=== PATIENT | female | born 1985 | race Caucasian/White ===

== ENCOUNTER 2018-05-24 15:14 | Emergency (ER) | payer OTHER ==
[~2018-05-24] VITALS: Ht 165.1 cm; Wt 99.8 kg
== END 2018-05-24 19:16 | disposition home or self-care (01) ==
LOC: ER 15:14
DX: J32.8 Other chronic sinusitis (principal); R42 Dizziness and giddiness

== ENCOUNTER → 2018-11-07 | Emergency (ER) | payer OTHER ==
[~2018-11-07] VITALS: Ht 165.1 cm; Wt 97.5 kg
== END | disposition home or self-care (01) ==
LOC: ER 19:51
DX: M25.562 Pain in left knee (principal)

== ENCOUNTER → 2019-10-02 | Emergency (ER) | payer OTHER ==
[~2019-10-02] VITALS: Ht 162.6 cm; Wt 90.7 kg
== END | disposition home or self-care (01) ==
LOC: ER 20:04
DX: H10.89 Other conjunctivitis (principal)